=== PATIENT | male | born 1995 | race Hispanic/Latino ===

== ENCOUNTER 2019-09-04 21:36 | Emergency (ER) | payer SELFPAY ==
[2019-09-04 21:53] VITALS: BP 129/89
--- NOTE | 2019-09-04 22:02 | Emergency Department Report ---
- General Chief Complaint: Wound/Laceration Stated Complaint: RIGHT FINGER INJURY Time Seen by Provider: 09/04/19 21:58 Source: patient, EMS Mode of arrival: Ambulatory Limitations: No Limitations - History of Present Illness Initial Comments: Patient is a 24-year-old male that presents emergency room with complaints of a cut on his left hand, ring finger. Patient states he was working with the [employer] department and went through a glass window. Patient states a piece of glass must have cut his hand. Patient states his tetanus is up-to-date. Patient states he had 2 years ago. Patient denies pain. Patient states bleeding was controlled by EMS with direct pressure. -: Sudden Extremity Location: Left: Hand Place: work Patient Tetanus UTD: Yes Context: accidental Associated Symptoms: none Treatments Prior to Arrival: bandage - Related Data Previous Rx's Medication Instructions Recorded Last Taken Type Sulfamethoxazole/Trimethoprim 1 each PO BID 5 Days #10 tablet 09/04/19 Unknown Rx [Bactrim DS TAB] Allergies Allergy/AdvReac Type Severity Reaction Status Date / Time No Known Allergies Allergy Unverified 09/04/19 21:44 ED Review of Systems ROS: Stated complaint: RIGHT FINGER INJURY Other details as noted in HPI Constitutional: denies: chills, fever Eyes: denies: eye pain, eye discharge, vision change ENT: denies: ear pain, throat pain Respiratory: denies: cough, shortness of breath, wheezing Cardiovascular: denies: chest pain, palpitations Endocrine: no symptoms reported Gastrointestinal: denies: abdominal pain, nausea, diarrhea Genitourinary: denies: urgency, dysuria Musculoskeletal: denies: back pain, joint swelling, arthralgia Skin: denies: rash, lesions Neurological: denies: headache, weakness, paresthesias Psychiatric: denies: anxiety, depression Hematological/Lymphatic: denies: easy bleeding, easy bruising ED Past Medical Hx - Past Medical History Previous Medical History?: No - Surgical History Past Surgical History?: No - Family History Family history: no significant - Social History Smoking Status: Never Smoker Substance Use Type: None - Medications Home Medications: Home Medications Medication Instructions Recorded Confirmed Last Taken Type Sulfamethoxazole/Trimethoprim 1 each PO BID 5 Days #10 tablet 09/04/19 Unknown Rx [Bactrim DS TAB] ED Physical Exam - General Limitations: No Limitations General appearance: alert, in no apparent distress - Head Head exam: Present: atraumatic, normocephalic - Eye Eye exam: Present: normal appearance - ENT ENT exam: Present: mucous membranes moist - Neck Neck exam: Present: normal inspection - Respiratory Respiratory exam: Present: normal lung sounds bilaterally. Absent: respiratory distress, wheezes - Cardiovascular Cardiovascular Exam: Present: regular rate, normal rhythm. Absent: systolic murmur, diastolic murmur, rubs, gallop - GI/Abdominal GI/Abdominal exam: Present: soft, normal bowel sounds - Rectal Rectal exam: Present: deferred - Extremities Exam Extremities exam: Present: normal inspection ( except for left ring finger.), full ROM - Back Exam Back exam: Present: normal inspection - Neurological Exam Neurological exam: Present: alert, oriented X3 - Psychiatric Psychiatric exam: Present: normal affect, normal mood - Skin Skin exam: Present: warm, dry, intact, normal color, other (skin avulsion noted to the dorsal aspect of the left ring finger, the middle phalanx). Absent: rash ED Course Vital Signs 09/04/19 21:44 Temperature 98.2 F Pulse Rate 88 Respiratory 18 Rate Blood Pressure 129/89 O2 Sat by Pulse 99 Oximetry - Reevaluation(s) Reevaluation #1: I discussed all results with patient. Discussed plan of care patient. Patient agrees to plan of care. Patient is stable for discharge. Patient was discharged home. Patient given discharge instructions. Patient voiced understanding of discharge instructions. Patient to keep site clean and dry and watch for signs of infection. 09/04/19 22:39 ED Medical Decision Making - Radiology Data Radiology results: report reviewed, image reviewed interpreted by me: No acute fracture noted EXAMINATION: Left hand radiograph, 3 views, 09/04/2019 CLINICAL INFORMATION: Trauma. Laceration. COMPARISON: None. FINDINGS: There is no evidence of acute fracture or dislocation of the left hand. There is possible subtle soft tissue injury of the distal tip of the fourth digit. IMPRESSION: Possible soft tissue injury to the distal tip of the fourth digit. 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 Patient's x-ray is negative for fracture. Patient exam reveals a avulsion of skin from the left ring finger at the middle phalanx on the dorsal aspect. Patient's tetanus is up-to-date. Patient stable for discharge. Patient given wound care techniques. Patient instructed to watch for signs of infection. 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 ED Disposition Clinical Impression: Finger injury Qualifiers: Encounter type: initial encounter Laterality: left Qualified Code(s): S69.92XA - Unspecified injury of left wrist, hand and finger(s), initial encounter Avulsion of skin of finger Qualifiers: Encounter type: initial encounter Qualified Code(s): S61.209A - Unspecified open wound of unspecified finger without damage to nail, initial encounter Disposition: TO HOME OR SELFCARE Is pt being admited?: No Does the pt Need Aspirin: No Condition: Stable Instructions: Skin Avulsion (ED) Additional Instructions: Patient to follow up with primary care in 2-3 days. Patient to keep on clean and dry. Patient to watch for signs of infection. Patient to return to ER if condition worsens, changes or new symptoms arise. Patient to take Tylenol or ibuprofen when necessary for pain. Prescriptions: Sulfamethoxazole/Trimethoprim [Bactrim DS TAB] 1 each PO BID 5 Days #10 tablet Referrals: PRIMARY CARE [Primary Care Provider] - 2-3 Days Time of Disposition: 22:37
--- NOTE | 2019-09-04 22:31 | XRay Report ---
EXAMINATION: Left hand radiograph, 3 views, 09/04/2019 CLINICAL INFORMATION: Trauma. Laceration. COMPARISON: None. FINDINGS: There is no evidence of acute fracture or dislocation of the left hand. There is possible s ubtle soft tissue injury of the distal tip of the fourth digit. IMPRESSION: Possible soft tissue injury to the distal tip of the fourth digit. Signer Name: Nora South MD Signed: 09/04/2019 10:26 PM Workstation Name: [id number]
== END 2019-09-04 22:50 | disposition home or self-care (01) ==
LOC: ED 21:36
DX: S61.305A Unspecified open wound of left ring finger with damage to nail, initial encounter (principal); S69.92XA Unspecified injury of left wrist, hand and finger(s), initial encounter; Z79.899 Other long term (current) drug therapy; W25.XXXA Contact with sharp glass, initial encounter; Y93.89 Activity, other specified; Y92.89 Other specified places as the place of occurrence of the external cause; Y99.8 Other external cause status